=== PATIENT | male | born 1940 | race Two or more races ===

== ENCOUNTER 2018-09-10 12:07 | Emergency (ER) | payer MEDICARE, MEDICAID ==
[~2018-09-10] VITALS: Ht 165.1 cm; Wt 72.6 kg
[2018-09-10 15:38] LABS: Basophils # (auto) 0 uL; Basophils % (auto) 0.2 % (0.0-2.0); Eosinophils # (auto) 0 uL; Eosinophils % (auto) 0.2 % (0.0-7.0); Hematocrit 49.7 % (41.0-53.0); Hemoglobin 17.4 g/dL (13.5-17.5); Lymphocytes # (auto) 1.1 uL; Lymphocytes % (auto) 18.5 % (10.0-50.0); Mean Corpuscular Hemoglobin 30.8 pg (28.0-32.0); Mean Corpuscular Hgb Conc. 34.9 g/dL (32.0-36.0); Monocytes # (auto) 0.4 uL; Monocytes % (auto) 7.2 % (0.0-12.0); Neutrophils # (auto) 4.3 uL; Neutrophils % (auto) 73.9 % (37.0-80.0); Nucleated Red Blood Cells % 0.4 %; Platelet Count (auto) 88 10^3/uL (140-450); Red Blood Cells 5.65 10^6/uL (4.5-5.90); Red Cell Distribution Width 13.6 % (11.8-14.3); White Blood Cell 5.9 10^3/uL (4.4-10.8)
[2018-09-10 15:39] LABS: Alanine Aminotransferase 108 U/L (16-61); Albumin 3.9 g/dL (3.4-5.0); Amylase 79 U/L (25-115); Anion Gap 11 (5-15); Blood Alcohol < 3.0 mg/dL (0-5); Blood Urea Nitrogen 15 mg/dL (7-18); Calcium 8.8 mg/dL (8.5-10.1); Carbon Dioxide 28 mmol/L (21-32); Chloride 91 mmol/L (98-107); Glucose 127 mg/dL (74-106); INR 1.03 (0.9-1.15); Lipase 289 U/L (73-393); Magnesium 2.1 mg/dL (1.6-2.6); Potassium 3.5 mmol/L (3.5-5.1); Sodium 130 mmol/L (136-145)
[2018-09-10 15:44] LABS: Alkaline Phosphatase 81 U/L (45-117); Aspartate Aminotransferase 127 U/L (15-37); Bilirubin, Total 1.4 mg/dL (0.2-1.0); GFR African American 72 mL/min; GFR Non-African American 60 mL/min; Total Protein 7.6 g/dL (6.4-8.2)
[2018-09-10 16:05] VITALS: BP 141/78
== END 2018-09-10 19:00 | disposition home or self-care (01) ==
LOC: ER 12:07
DX: K80.20 Calculus of gallbladder without cholecystitis without obstruction (principal); R94.5 Abnormal results of liver function studies; F10.10 Alcohol abuse, uncomplicated
CPT/HCPCS: 36415; 71046; 74176; 80053; 80320; 82150; 83690; 83735; 84484; 85025; 85610; 93005; 94761